=== PATIENT | male | born 1950 | race Two or more races ===

== ENCOUNTER 2016-12-27 07:44 | Day surgery (SDC) | payer MEDICARE ==
[~2016-12-27] VITALS: Ht 172.7 cm; Wt 86.4 kg
[~2016-12-27 07:44] MED LIST: ACETAMINOPHEN325 MG PO; ARGININE500 MG PO; ARTIFICIAL TEAR15 ML EACH EYE; ASCORBIC ACID500 MG PO; CARDIZEM120 MG PO; CLEOCIN HCL300 MG PO; COREG6.25 MG PO; COUMADIN4 MG PO; CYMBALTA30 MG; CYMBALTA30 MG PO; CYMBALTA60 MG PO; DIOVAN40 MG PO; FAMOTIDINE10 MG PO; FER-IN-SOL DROP50 ML; FERROUS SULFAT325 MG PO; FLOMAX0.4 MG PO; HUMALOG100 U/M1 SQ; HYDROCODON-ACE1 EAC7 PO; HYDROCODONE-APA1 TAB PO; LANTUS INSULIN10 ML SC; LEVEMIR100 U/M1 SQ; LEVOTHROID75 MCG PO; LYRICA150 MG PO; MELATONIN 3 MG1 TAB PO; MIRALAX17 GM PO; MULTIPLE VITAMI1 TA1 PO; NOVOLOG100 U/M1 SQ; PEPCID20 MG PO; PHENERGAN25 M1 PO; PROTONIX40 MG PO; REGLAN10 MG PO; SENNA LAXATIVE8.6 MG PO; SINEMET 25-1001 EACH PO; SYNTHROID175 MCG PO; TYLENOL W/CODEI1 TAB PO; VITAMIN D5000 UNIT; VITAMIN D5000 UNIT PO; ZOCOR20 MG PO; ZOCOR40 MG PO
[2016-12-27 08:15] LABS: BASOPHILS 1.1 % (0-2); EOSINOPHILS 9.5 % (0-7); HEMATOCRIT 39.2 % (42.0-54.0); HEMOGLOBIN 12.2 g/dL (13.5-17.5); IMMATURE GRANULOCYTES 0.1 % (0-5); LYMPHOCYTES 35.6 % (15-50); MCH 26.2 pg (26.0-34.0); MCHC 31.1 g/dL (31.0-37.0); MCV 84.1 fL (80.0-100.0); MEAN PLATELET VOLUME 9.1 fL (7.4-10.4); MONOCYTES 9.2 % (2-11); NEUTROPHILS 44.5 % (40-80); RBC 4.66 10x6/uL (4.20-6.10); RDW 17.6 % (11.5-14.5); WBC 7.1 10x3/uL (4.8-10.8)
[2016-12-27 08:18] LABS: PLATELET COUNT 280 10x3/uL (130-400)
[2016-12-27 08:36] LABS: ANION GAP 14.7 mmol/L (8-16); CALCIUM 8.7 mg/dL (8.5-10.1); CREATININE - SERUM 3.3 mg/dL (0.6-1.3); POTASSIUM - SERUM 3.7 mmol/L (3.5-5.1)
[2016-12-27 08:43] LABS: APTT 27.4 SECONDS (22.8-39.4); INR 0.91 (0.85-1.17); PROTIME 12.1 SECONDS (11.6-15.0)
[2016-12-27] MEDS ORDERED: ACIDOPHILUS LAC1 CAP PO (09:53)
[2016-12-27] MEDS ORDERED: HYDROCODON-ACE1 EAC7 PO (09:56)
[2016-12-27] MEDS ORDERED: METAMUCIL PACKE1 PKT PO (09:56)
[2016-12-27] MEDS ORDERED: CARBIDOPA-LEVO1 EAC2 PO (09:58)
[2016-12-27 10:06] VITALS: BP 114/63; Ht 172.7 cm; Wt 86.4 kg
--- NOTE | 2016-12-27 16:05 | NUR ---
PATIENT ARRIVES TO OUTPATIENT ROOM AND BLOOD PRESSURE 81/49, HR 81. PATIENT AWAKE, ALERT, TALKATIVE AND COHERENT. DENIES COMPLAINTS. GAEL OH RN NOTIFIES AARON MILLER CRNA WHO COMES TO SEE PATIENT REGARDING BLOOD PRESSURE. AARON MILLER'S RECOMMENDATION IS FOR DR NELSON TO BE NOTIFIED PATIENT MAY NEED TO BE ADMITTED. DR NELSON CALLED, DR NELSON REQUESTS RENAL SERVICE TO BE NOTIFIED. 1625 ALISON DEWITT APN WITH RENAL RETURNS PAGE AND GIVES ORDER TO GIVE 500 CC NORMAL SALINE BOLUS. 1628 BOLUS HELD AT THIS TIME, DUE TO LABILE BLOOD PRESSURE. BP 207/109, HR 80 AND REGULAR, RECHECKED IMMEDIATELY, 182/87. PATIENT DENIES COMPLAINTS, AWAKE, ALERT, DENIES PAIN. NO CHANGE IN LEFT ARM SURGICAL SITE ASSESSMENT. 1636 BP 114/60, HR 80 1650 BP 85/48, HR 79. BOLUS STARTED. PATIENT CONTINUES TO BE AWAKE, ALERT, DENIES COMPLAINTS. PLACED ON BAGGAGE INSPECTOR, NSR 83. 1645 BP 88/51, CAFFEINATED COFFEE SERVED. PATIENT DRINKING COFFEE, WATCHING TV. CARDIAC MONITORING CONTINUING, NSR 82. 1740 BOLUS COMPLETE, ALISON DEWITT APN CONTACTED PATIENT'S BP 79/42, HR 81, RR 16, O2 SAT 100% ON RA.
--- NOTE | 2016-12-27 18:00 | NUR ---
ALISON DEWITT APN RETURNS CALL, ORDER RECEIVED FOR PATIENT TO BE ADMITTED OVERNIGHT ON MED 2 FOR OBSERVATION. PATIENT ADVISED, TRUST ADVISOR ADVISED.
--- NOTE | 2016-12-27 19:05 | NUR ---
REPORT CALLED TO FABIAN SUMMERS RN ON MED 2, PATIENT TRANSFERRED TO ROOM 2103 BY COLLIN
--- NOTE | 2016-12-27 20:16 | NUR ---
PT IN BED WATCHING TELEVISION. DENIES NEEDS AT THIS TIME.
--- NOTE | 2016-12-28 04:16 | NUR ---
RESTING IN BED WITH EYES CLOSED. NO S/S OF DISTRESS OBSERVED. HEMOSPLIT TO RIGHT CHEST. DRESSING TO SITE CLEAN, DRY AND INTACT. HYPOTENSIVE EARLIER. 500CC OF NS GIVEN BOLUS AND B/P BETTER. CALL LIGHT AND OVER BED TABLE IN REACH.
--- NOTE | 2016-12-28 06:54 | OP ---
PATIENT NAME: ARI RODRIGUEZ MEDICAL RECORD: [id number] :50 LOCATION:D. D.2103 ADMISSION DATE: SURGEON: RENATE NELSON MD DATE OF OPERATION: 12/27/2016 REFERRING PHYSICIAN: Patrick Kerns MD PREOPERATIVE DIAGNOSIS: End-stage renal disease and dependence on hemodialysis. POSTOPERATIVE DIAGNOSIS: End-stage renal disease and dependence on hemodialysis. OPERATION PERFORMED: Implantation of a 6 mm straight Propaten PTFE loop graft in the left arm. SURGEON: Renate Nelson MD ANESTHESIA: General with LMA per NEONATAL DOCTOR. PREOPERATIVE NOTE: Mr. Rodriguez is a 66-year-old male patient, who is a [facility] confined and presently on dialysis with a tunneled dialysis catheter in the left internal jugular vein. He needs long-term access and is brought to the operating room today to try to either create a fistula or very likely implant an AV graft. The patient has rather small vessels on physical examination. He is allergic to contrast. DESCRIPTION OF PROCEDURE: Under anesthesia in supine position, the patient was prepped and draped in sterile manner. I used a Tess drain as a proximal venous tourniquet and applied nitroglycerin to the skin of the arm and forearm. I examined him then with duplex ultrasound and found the superficial veins in his forearm and arm to be quite small. There was a good median antebrachial vein in the forearm, which transitioned to the median cubital vein, which was of adequate caliber for a fistula, but the cephalic vein just above the antecubital space was absent. The basilic vein was small, and as he is already on dialysis, I did not think we needed to create a less than serviceable fistula. I went ahead with plans for graft. The axillary and basilic vein in the axilla were adequate as was the axillary artery and proximal brachial artery. I made a longitudinal incision on the medial aspect of the arm just lateral to the axilla and exposed the most proximal basilic vein and the proximal brachial artery as well. The vessels were controlled with Silastic loops and atraumatic clamps. I chose a 6-mm straight [place] Propaten graft, bevelled one in and anastomosed it to the side of the vein with running 6-0 Prolene. The vein was flushed with heparinized saline. Evicel fibrin sealant was used on the suture line and fibrillar was also used to achieve hemostasis. The graft was placed in a tunnel, which required one counterincision just above the antecubital space. The arterial limb was the anterior and the venous limb was the posterior part of this loop. The graft was shortened and beveled and anastomosed end-to-side to the brachial artery with continuous running 6-0 Prolene only with regional dilute heparin injection in the brachial artery proximally and distally. When that suture line was complete, it was also treated with Evicel fibrin sealant, and then after 2 minutes the clamps were released, an excellent flow was established in the graft and hemostasis was adequate. There was adequate flow OPERATIVE REPORT [id number] ARI RODRIGUEZ distally in the brachial and radial artery at the wrist as well. The wounds were irrigated gently with saline. Hemostasis was obtained with electrocautery. The wounds were infiltrated with 0.25% Marcaine without epinephrine. No drain was used. The wounds were closed in layers with interrupted 3-0 Vicryl and running intracuticular 4-0 Monocryl and Dermabond glue. The incisions were dressed with Maxorb Ag, Tegaderm and Cavilon skin prep. The patient then awakened and taken to the recovery room in stable condition. Blood loss during the procedure was insignificant, probably 10 cc, none was replaced intraoperatively. All sponges, instruments and needles were accounted for. No surgical specimen was submitted for histopathology. PLAN: The patient's graft should be usable for access in about 2, perhaps 3 weeks. I think that he should have an angiogram done at 6 weeks as I am interested to see what the venous anastomosis does as it was technically difficult. PLAN: The patient will be discharged to return to his [facility] this afternoon. Continue on his same medications, diet, etc. He will come back to see me in my office next week. TRANSINT:[id number] Voice Confirmation ID: [id number] DOCUMENT ID: [id number] RENATE NELSON MD at 0654 CC: [id number] DICTATION DATE: 12/27/161552 FOLDER TIER: 12/27/162135 REG [facility] [address] [place] [address]
[2016-12-28] MEDS ORDERED: HYDROCODONE-APA1 TAB PO (08:06)
--- NOTE | 2016-12-28 08:21 | NUR ---
FLUSHED RT CHEST HEMISLPIT WITH 10CC OF NS, AND THEN HEP LOCKED IT WITH 3000UNITS OF HEPARIN ORDERED. PT DENIES ANY NEEDS AT THIS TIME. CALL LIGHT IN REACH, NAD NOTED, WILL CONTINUE PLAN OF CARE
--- NOTE | 2016-12-28 09:28 | NUR ---
CM RECEIVED DISCHARGE ORDER, MET WITH PT IN ROOM AND DISCUSSED DISCHARGE AND NEEDS. PT REPORTS HE LIVES AT [place] AND HAS LIVED THERE FOR THE PAST 10 YEARS. PT REPORTS NEEDING ASSISTANCE WITH ALL DAILY LIVING NEEDS OTHER THAN EATING. PT IS MOBILE IN HIS WHEELCHAIR ONLY. PT'S WHEELCHAIR IS IN THE HOSPITAL ROOM FOR DISCHARGE TODAY. PT DENIES NEED TO CALL FAMILY TO NOTIFY THEM OF HIS DISCHARGE HOME. PT REPORTS HE IS NOT GOING TO DIALYSIS AND THAT CM NEEDS TO CALL THE [place] [facility] TO PICK HIM UP NOW. CM NOTIFIED BEDSIDE NURSE OF PT'S REFUSAL OF DIALYSIS. CM CALLED [facility], , SPOKE TO PJ, NOTIFIED OF DISCHARGE BACK HOME TO [place]. CM FAXED DISCHARGE INFORMATION TO [place] AT [phone]. NURSE REPORT TO BE CALLED TO NURSE DARIN MEDINA AT [place], . [place] TO ARRANGE [facility] SERVICE CLEANER TODAY. DVAIDE TAPIA, CASE MANAGEMENT
--- NOTE | 2016-12-28 09:30 | NUR ---
CALLED [facility] TO GIVE REPORT. WAS PLACED ON HOLD FOR 15MIN. WILL CALL BACK LATER.
--- NOTE | 2016-12-28 10:00 | NUR ---
PROVIDED DISCHARGE TEACHING TO PT, PT VERBALIZED UNDERSTANDING REGARDING TEACHING. PT UNABLE TO SIGN DUE TO HAND SHAKING TOO MUCH. PT DENIES ANY NEEDS AT THIS TIME. WILL CALL [facility] TO GIVE REPORT TO SEE WHAT TIME [facility] WILL BE HERE TO PICK PT UP. NAD NOTED, WILL CONTINUE PLAN OF CARE.
--- NOTE | 2016-12-28 10:15 | NUR ---
CALLED [facility] AND GAVE REPORT TO DARIN GUILLEN WHO WILL BE TAKING CARE OF PT. 1020- CALLED RT MAYELA THE AUTOMATIC FURNACE OPERATOR TO LET HIM KNOW PT IS READY FOR METER REPAIRER. RT STATED THAT HE WILL BE HERE IN 30MIN.
--- NOTE | 2016-12-28 12:35 | NUR ---
RT [facility] WOOD HANDLER HERE TO FOOD BEVERAGE ATTENDANT PT. PT LEFT UNIT VIA OWN WHEELCHIAR, NAD NOTED.
== END 2016-12-28 12:36 ==
LOC: D.OPS 07:44 → D.M2 19:08 → D.OPS 12-28 12:36
PROVIDERS: Internal Medicine Nephrology
DX: N18.6 End stage renal disease (principal); Z99.2 Dependence on renal dialysis; Z01.812 Encounter for preprocedural laboratory examination

== ENCOUNTER 2016-12-30 22:36 | Inpatient (IN) | payer MEDICARE ==
[~2016-12-30] VITALS: Ht 172.7 cm; Wt 86.2 kg
[~2016-12-30 22:36] MED LIST changes: +ACIDOPHILUS LAC1 CAP PO; +CARBIDOPA-LEVO1 EAC2 PO; +METAMUCIL PACKE1 PKT PO
[2016-12-31 00:11] LABS: BASOPHILS 0.4 % (0-2); EOSINOPHILS 4.6 % (0-7); HEMATOCRIT 34.9 % (42.0-54.0); HEMOGLOBIN 11.1 g/dL (13.5-17.5); IMMATURE GRANULOCYTES 0.4 % (0-5); LYMPHOCYTES 24.5 % (15-50); MCH 26.2 pg (26.0-34.0); MCHC 31.8 g/dL (31.0-37.0); MCV 82.3 fL (80.0-100.0); MEAN PLATELET VOLUME 9.7 fL (7.4-10.4); MONOCYTES 9.2 % (2-11); NEUTROPHILS 60.9 % (40-80); RBC 4.24 10x6/uL (4.20-6.10); RDW 17.2 % (11.5-14.5); WBC 7.7 10x3/uL (4.8-10.8)
[2016-12-31 00:20] LABS: PLATELET COUNT 178 10x3/uL (130-400)
[2016-12-31 00:41] LABS: ALBUMIN 2.2 g/dL (3.4-5.0); ANION GAP 13.1 mmol/L (8-16); BILIRUBIN - TOTAL 0.51 mg/dL (0.2-1.3); CALCIUM 8.1 mg/dL (8.5-10.1); CARBON DIOXIDE 27.2 mmol/L (21.0-32.0); CREATININE - SERUM 2.5 mg/dL (0.6-1.3); MAGNESIUM - SERUM 1.7 mg/dL (1.8-2.4); POTASSIUM - SERUM 3.3 mmol/L (3.5-5.1); PROTEIN - SERUM 7.4 g/dL (6.4-8.2)
--- NOTE | 2016-12-31 01:45 | NUR ---
PT ARRIVED TO FLOOR VIA BED. BREATHING EVEN AND UNLABORED. ORIENTED TO NURSE AND UNIT. BED IN LOW POSITION, CALL LIGHT WITHIN REACH. DENIES NEEDS AT THIS TIME. HOOKED UP TO IV TO RECIEVE ORDERED ZOSYN IVPB.
[2016-12-31 02:02] VITALS: BP 104/58; BMI 28.9
[2016-12-31 04:16] VITALS: BP 93/45
--- NOTE | 2016-12-31 05:30 | NUR ---
PT IN BED RESTING QUIETLY. FSBS 131, NO COVERAGE PER SLIDING SCALE. BREATHING EVEN AND UNLABORED. DENIES ANY PAIN OR NEEDS AT THIS TIME. BED IN LOW POSITION, CALL LIGHT WITHIN REACH.
--- NOTE | 2016-12-31 07:41 | NUR ---
PATIENT ALERT/ORIENT. CALL LIGHT WITHIN REACH. VOICES NO NEEDS AT THIS TIME.
[2016-12-31 08:00] VITALS: BP 99/49
--- NOTE | 2016-12-31 10:37 | NUR ---
PATIENT LYING IN BED WATCHIN T.V. ANTIBIOTIC RUNNING PERIPHERAL LINE RIGHT UPPER ARM.
[2016-12-31 12:00] VITALS: BP 105/50
--- NOTE | 2016-12-31 13:00 | NUR ---
DARIN RAMOS SEE PATIENT. NEW ORDERS RECEIVED.
[2016-12-31 13:02] VITALS: Ht 172.7 cm; Wt 86.2 kg
--- NOTE | 2016-12-31 13:44 | NUR ---
SCD'S ON MARLI LE
--- NOTE | 2016-12-31 14:00 | NUR ---
DR GARDINER INTO SEE PATIENT. NEW ORDERS RECIEVED.
[2016-12-31 16:00] VITALS: BP 108/53
--- NOTE | 2016-12-31 16:13 | NUR ---
GLUCOSE LEVEL 74. NO SLIDING SCALE INSULIN GIVEN PER ORDER
--- NOTE | 2016-12-31 17:00 | NUR ---
GLUCOSE LEVEL 74. PATIENT SITTING UP IN BED TO EAT SUPPER.
[2016-12-31 21:22] VITALS: BP 107/51
--- NOTE | 2016-12-31 22:04 | NUR ---
INITIAL ROUNDS COMPLETED AT 191 HRS. PT RESTING WITH EYES CLOSED. RESP EVEN AND REULAR. ASSESSMENT COMPELTED AT 2024 HRS. VSS. ALRT AND ORIENTED. L UPPER FA RED AND SWOLLEN. R UPPER CHEST HEMOSPLIT CLEAN, DRY AND INTACT. LUNGS ESSENTIALLY CTA. SCD'S REMOVED AND SKIN INSPECTED. NO BREAKDOWN NOTED. IV TO UPPER R ARM SL. PM FSBS 88. NO COVERAGE NEEEDED. PM MEDS AND SNACK GIVEN. PT CURRENTLY RESTING WITH EYES CLOSED. RESP EVEN AND REGULAR. SR UP X2, CALL LIGHT WITHIN REACH.
--- NOTE | 2017-01-01 00:18 | NUR ---
PT INCONTINENT OF URINE. INCONTINENT CARE DONE. VSS. PT DENIES ANY NEEDS AT THIS TIME. WILL CONTINUE TO MONITOR.
[2017-01-01 01:32] VITALS: BP 99/48
--- NOTE | 2017-01-01 02:10 | NUR ---
PT RESTING WITH EYES CLOSED. RESP EVEN AND REGULAR. SR UP X2,CALL LIGHT WITHIN REACH.
--- NOTE | 2017-01-01 04:06 | NUR ---
PT RESTING WITH EYES CLOSED. RESP EVEN AND REGULAR. SR UPX2, CALL LIGHT WITHIN REACH.
[2017-01-01 04:27] VITALS: BP 104/50
--- NOTE | 2017-01-01 06:01 | NUR ---
VSS THROUGHOUT NIGHT. PT STATED NORCO HELPED CONTROL PAIN. INCONTINENT OF URINE X2 DURING SHIFT. AM FSBS 108. NO COVERGE NEEDED. NEEDS MET; WILL CONTINUE TO MONITOR.
[2017-01-01 06:32] LABS: PHOSPHOROUS 3.9 mg/dL (2.5-4.9); VANCOMYCIN - RANDOM 0.1 ug/mL (10.0-20.0)
--- NOTE | 2017-01-01 07:35 | NUR ---
ASSESSMENT DONE. DENIES NEEDS,
[2017-01-01 09:06] VITALS: BP 90/51
--- NOTE | 2017-01-01 09:48 | NUR ---
RESTS WITH EYES CLOSED. IV PATENT. CALL LIGHT IN REACH. WILL MONITOR NEEDS.
[2017-01-01 11:32] LABS: BASOPHILS 0.4 % (0-2); EOSINOPHILS 8.6 % (0-7); HEMATOCRIT 33.5 % (42.0-54.0); HEMOGLOBIN 10.4 g/dL (13.5-17.5); IMMATURE GRANULOCYTES 0.4 % (0-5); LYMPHOCYTES 29.8 % (15-50); MCH 25.9 pg (26.0-34.0); MCV 83.5 fL (80.0-100.0); MEAN PLATELET VOLUME 9.3 fL (7.4-10.4); MONOCYTES 9.9 % (2-11); NEUTROPHILS 50.9 % (40-80); RBC 4.01 10x6/uL (4.20-6.10); RDW 17.4 % (11.5-14.5); WBC 6.9 10x3/uL (4.8-10.8)
[2017-01-01 11:33] LABS: PLATELET COUNT 216 10x3/uL (130-400)
[2017-01-01 11:49] LABS: ALBUMIN 2.2 g/dL (3.4-5.0); ANION GAP 15.2 mmol/L (8-16); BILIRUBIN - TOTAL 0.58 mg/dL (0.2-1.3); CALCIUM 8.3 mg/dL (8.5-10.1); CARBON DIOXIDE 25.3 mmol/L (21.0-32.0); POTASSIUM - SERUM 3.5 mmol/L (3.5-5.1); PROTEIN - SERUM 6.6 g/dL (6.4-8.2)
[2017-01-01 11:51] LABS: CREATININE - SERUM 3.3 mg/dL (0.6-1.3)
[2017-01-01 12:00] VITALS: BP 116/55
[2017-01-01 16:00] VITALS: BP 111/55
--- NOTE | 2017-01-01 16:59 | NUR ---
WITHOUT CHANGES OR DISTRESS NOTED AT THIS TIME. DENIES NEEDS.
[2017-01-01 19:00] VITALS: BP 110/56
--- NOTE | 2017-01-01 19:41 | NUR ---
RECEIVED REPORT, WILL ASSUME CARE OF PT, PT LYING QUIETLY WITH EYES CLOSED, BED IS LOW, SRX2, CALL LIGHT IN REACH,WILL CONTINUE PLAN OF CARE
[2017-01-02 00:29] VITALS: BP 131/61
--- NOTE | 2017-01-02 02:25 | NUR ---
COMPLAINS OF ARM PAIN, GAVE NORCO ORDER
[2017-01-02 05:03] VITALS: BP 106/53
[2017-01-02 05:06] LABS: BASOPHILS 0.6 % (0-2); EOSINOPHILS 10.8 % (0-7); HEMATOCRIT 32.3 % (42.0-54.0); HEMOGLOBIN 9.9 g/dL (13.5-17.5); IMMATURE GRANULOCYTES 0.3 % (0-5); LYMPHOCYTES 37.3 % (15-50); MCH 25.6 pg (26.0-34.0); MCHC 30.7 g/dL (31.0-37.0); MCV 83.5 fL (80.0-100.0); MONOCYTES 10.4 % (2-11); NEUTROPHILS 40.6 % (40-80); PLATELET COUNT 220 10x3/uL (130-400); RBC 3.87 10x6/uL (4.20-6.10); RDW 17.3 % (11.5-14.5); WBC 6.5 10x3/uL (4.8-10.8)
[2017-01-02 05:36] LABS: ANION GAP 16.4 mmol/L (8-16); BILIRUBIN - TOTAL 0.6 mg/dL (0.2-1.3); CALCIUM 8.5 mg/dL (8.5-10.1); CARBON DIOXIDE 24.9 mmol/L (21.0-32.0); CREATININE - SERUM 3.7 mg/dL (0.6-1.3); POTASSIUM - SERUM 3.3 mmol/L (3.5-5.1); PROTEIN - SERUM 6.7 g/dL (6.4-8.2)
--- NOTE | 2017-01-02 07:49 | NUR ---
MORNING ROUNDS MADE. PATIENT LAYING IN BED, WATCHING TV. C/O PAIN LEFT ARM, ADVISED HE IS DUE FOR [facility] AT 0815 AND I'LL BRING IT WITH HIS MORNING MEDS, PT VOICED UNDERSTANDING. LEFT UPPER ARM IS RED, SWOLLEN, AND WARM TO THE TOUCH. HE HAS 2 BANDAGES WHICH ARE DRY AND CLEAN. HE HAS A RIGHT CHEST HEMOSTAT, DRESSING CLEAN AND DRY. DENIES ANY NEEDS AT THIS TIME. CPOC.
[2017-01-02 08:14] VITALS: BP 106/52
--- NOTE | 2017-01-02 09:50 | NUR ---
PATIENT TRANSPORTED TO DIALYSIS BY [facility].
--- NOTE | 2017-01-02 13:08 | NUR ---
Nutrition follow-up: Diet: Renal ADA consistent CHO PO Intake ~75% of meals Labs reviewed Wt: 190# PO intake is good at this time. RDN will continue to monitor patients progress. Following.
--- NOTE | 2017-01-02 13:33 | NUR ---
PATIENT BACK FROM DIAYLSIS, PATIENT POSITIONED FOR COMFORT. DENIES ANY NEEDS. CPOC
[2017-01-02 16:18] VITALS: BP 111/56
--- NOTE | 2017-01-02 16:53 | NUR ---
PATIENT C/O PAIN, NORCO GIVEN. WILL CONTINUE TO MONITOR. LEFT UPPER ARM IS RED, SWOLLEN, AND WARM TO THE TOUCH. NO CHANGES SINCE ASSESSED THIS AM. CPOC.
--- NOTE | 2017-01-02 18:50 | NUR ---
EVENING ROUNDS MADE. PATIENT LAYING IN BED WATCHING TV. REQUESTS APPLE JUICE AT THIS TIME. APPLE JUICE GIVEN. NO OTHER REQUESTS AT THIS TIME. INSTRUCTED TO USE CALL LIGHT IF HE NEEDS ANYTHING. VOICED UNDERSTANDING. CPOC
[2017-01-02 19:00] VITALS: BP 106/51
--- NOTE | 2017-01-02 22:25 | NUR ---
HS MEDS GIVEN WITH FRESH ICE WATER, BS 88, NO COVERAGE GIVEN PER S/S. WILL CONT TO MONITOR.
[2017-01-03 01:21] VITALS: BP 110/56
--- NOTE | 2017-01-03 03:35 | NUR ---
RESTING WITH EYES CLOSED, RESPERATIONS EVEN, NO S/S DISTRESS NOTED.
[2017-01-03 04:00] VITALS: BP 122/57
--- NOTE | 2017-01-03 04:41 | NUR ---
PT REFUSES TO HAVE AM LAB DRAWN.
--- NOTE | 2017-01-03 05:28 | NUR ---
PT REFUSED EARLY AM MEDS AND BS CHECK.
--- NOTE | 2017-01-03 07:53 | NUR ---
AM ROUNDS - PT IS IN BED AND APPEARS TO BE SLEEPING WITH EQUAL AND NON LOBORED BREATHING. IV TO RIGHT UPPER ARM, NS AT KVO (10CC/HR). BED AT LOWEST POSITION. CALL TEMPLE IN USE/REACH. SIDE RAILS UP X2. WILL CONTINUE TO MONITOR
--- NOTE | 2017-01-03 08:23 | NUR ---
PT INCONT OF BOWEL. VERY SOFT BROWN BM. ALSO INCON OF URINE. BED CAHNGED AND PARTIAL BATH GIVEN. READY FOR BREAKFAST.
[2017-01-03 08:42] VITALS: BP 119/68
[2017-01-03 08:58] LABS: BASOPHILS 0.7 % (0-2); EOSINOPHILS 7.8 % (0-7); HEMATOCRIT 36.5 % (42.0-54.0); HEMOGLOBIN 11.5 g/dL (13.5-17.5); IMMATURE GRANULOCYTES 0.4 % (0-5); LYMPHOCYTES 35.4 % (15-50); MCHC 31.5 g/dL (31.0-37.0); MCV 82.6 fL (80.0-100.0); MEAN PLATELET VOLUME 8.8 fL (7.4-10.4); MONOCYTES 8.3 % (2-11); NEUTROPHILS 47.4 % (40-80); PLATELET COUNT 211 10x3/uL (130-400); RBC 4.42 10x6/uL (4.20-6.10); RDW 16.9 % (11.5-14.5)
[2017-01-03 09:47] LABS: ALBUMIN 2.2 g/dL (3.4-5.0); BILIRUBIN - TOTAL 0.56 mg/dL (0.2-1.3); CALCIUM 8.3 mg/dL (8.5-10.1); CARBON DIOXIDE 26.2 mmol/L (21.0-32.0); CREATININE - SERUM 3.4 mg/dL (0.6-1.3); PHOSPHOROUS 3.8 mg/dL (2.5-4.9); PROTEIN - SERUM 6.9 g/dL (6.4-8.2)
[2017-01-03 09:48] LABS: ANION GAP 15.6 mmol/L (8-16); POTASSIUM - SERUM 3.8 mmol/L (3.5-5.1)
[2017-01-03 12:09] VITALS: BP 111/52
[2017-01-03 16:29] VITALS: BP 122/55
[2017-01-03 20:00] VITALS: BP 112/55
--- NOTE | 2017-01-03 21:16 | NUR ---
HS MEDS GIVEN, BS 75, NO COVERAGE GIVEN PER S/S. PT DENIES PAIN OR NEEDS, BED LOW, CL IN REACH.
[2017-01-04 01:11] VITALS: BP 98/49
[2017-01-04 04:29] VITALS: BP 100/50
--- NOTE | 2017-01-04 04:29 | NUR ---
NOTIFIED BY GHISLAINE THE FORMING MILL OPERATOR, THE PT REFUSED MORNING LAB DRAW, STATED THAT HE HAS DILAYSIS TODAY AND WANTS TO WAIT UNTIL THEN TO GET LABS DRAWN.
--- NOTE | 2017-01-04 06:12 | NUR ---
FIRE CREW WORKER MEDS GIVEN, PT REFUSED FINGER STICK, WANTS TO WAIT UNTIL DIALYSIS.
[2017-01-04 08:23] VITALS: BP 107/47
--- NOTE | 2017-01-04 08:35 | NUR ---
AM ROUNDS COMPLETED. INTRODUCED MYSELF TO PT PRIMARY RN FOR TODAYS SHIFT. PT A&O SITTING UP IN BED EATING BREAKFAST. PT STATES HE HOPES TO BE DISCHARGED TODAY. L.ARM STILL SLIGHTLY SWOLLEN AND REDDENED, DRSG CDI. PT HAS A R.CHEST HEMESPLIT WITH BIOPATCH IN USE AND DRSG ADHERED TO SKIN. PT ALSO HAS A R.UPPER ARM PIV WITH DRSG CDI AND SWAB CAPS IN USE, WITH INTERMITT. ANBX INFUSING. PT SWALLOWED MORNING MEDICATIONS WITHOUT ANY DIFFICULTIES. WE NEED A STOOL SAMPLE FOR PT AND HE IS AWARE AND STATES HE WILL PROVIDED WHEN AVAILABLE. PT DENIES ANY FURTHER NEEDS AT THIS TIME. CL IN REACH, BED IN LOWEST, SIDE RAILS X2. WILL CPOC.
--- NOTE | 2017-01-04 09:10 | NUR ---
PT LEAVING FOR DIALYSIS AT THIS TIME.
--- NOTE | 2017-01-04 09:28 | NUR ---
Patient Name: ARI SOTO Admission Status: ER Accout number: [id number] Admission Date: 12-31-2016 : 1950 Admission Diagnosis:PAIN IN LEFT ARM Attending: BARB GARDINER Current LOS: 4 Anticipated DC Date: 01-04-2017 Planned Disposition: Nursing Facility [facility] Cert Primary Insurance: MEDICARE A & B PLANNED EXTERNAL PROVIDER: [facility] Discharge Planning Comments: * Is the patient Alert and Oriented? Yes 0 * How many steps to enter\exit or inside your home? NONE 0 * PCP DR. APNOTE 0 * Pharmacy [facility] 0 * Preadmission Environment [facility] 0 * Facility Name [facility] 0 * ADLs Partial Dependent 0 * Partial ADLs (Assistance needed) Ambulation Bathing Dressing Medication Management Toileting Transfers 0 * Equipment Wheelchair 0 * Other Equipment ALL MEDICAL EQUIPMENT PROVIDED BY FACILITY 0 * List name and contact numbers for known caregivers / representatives who currently or will assist patient after discharge: ELIZABETH SOTO DTR, 0 * Community resources currently utilized Other 0 * Please name any agencies selected above. OUTPATIENT DIALYSIS, [facility], MWF, 1100, [facility] VAN TRANSPORT 0 * Additional services required to return to the preadmission environment? No 0 * Can the patient safely return to the preadmission environment? Yes 0 * Has this patient been hospitalized within the prior 30 days at any hospital? Yes 0 CM SPOKE TO RENAL NURSE DARIN WHO INFORMED CM THAT PT MAY DISCHARGE AFTER DIALYSIS TODAY. CM MET WITH PT IN ROOM TO DISCUSS DISCHARGE PLANNING AND NEEDS. PT REPORTS LIVING AT [facility], HE REPORTS NEEDING ASSISTANCE WITH EVERYTHING EXCEPT EATING. PT REPORTS BEING MOBILE IN HIS WHEELCHAIR AT THE FACILITY. PT GOES TO OUTPATIENT DIALYSIS AT [facility], [facility], [facility]SP[facility]. PT DENIES DISCHARGE NEEDS, REPORTS HE IS GOING HOME TO [facility] AND HAS BEEN READY TO GO BACK SINCE THE DAY HE GOT HERE. PT REPORTS THE [facility] WILL PICK HIM UP. CM OFFERED TO CALL FAMILY OR FRIENDS TO NOTIFY OF DISCHARGE HOME, PT REPORTS HE DOES NOT NEED ASSISTANCE TO CALL ANYONE. IMPORTANT MESSAGE FROM MEDICARE PROVIDED AND EXPLAINED. CM NOTIFIED [facility], , CLINICAL LIAISON FOR [facility] OF PT'S RETURN TODAY, FAXED UPDATE FOR [facility] VIA [facility] AT [phone]. FOR DISCHARGE, NURSE REPORT TO BE CALLED TO [facility] AT [phone]. FAX DISCHARGE INFORMATION TO [facility] AT [phone]. [facility] TO PROVIDE [facility]AN TRANSPORTATION. Supervisor Frame Sample And Pattern: Juno Huizar
[2017-01-04 10:50] LABS: BASOPHILS 0.5 % (0-2); HEMATOCRIT 33.2 % (42.0-54.0); HEMOGLOBIN 10.5 g/dL (13.5-17.5); IMMATURE GRANULOCYTES 0.4 % (0-5); MCH 26.3 pg (26.0-34.0); MCHC 31.6 g/dL (31.0-37.0); MONOCYTES 6.6 % (2-11); NEUTROPHILS 50.5 % (40-80); RDW 17.1 % (11.5-14.5); WBC 5.6 10x3/uL (4.8-10.8)
[2017-01-04 10:52] LABS: PLATELET COUNT 255 10x3/uL (130-400)
[2017-01-04 11:15] LABS: ALBUMIN 1.9 g/dL (3.4-5.0); BILIRUBIN - TOTAL 0.45 mg/dL (0.2-1.3); CALCIUM 8.2 mg/dL (8.5-10.1); CARBON DIOXIDE 24.8 mmol/L (21.0-32.0); CREATININE - SERUM 3.7 mg/dL (0.6-1.3); PROTEIN - SERUM 6.6 g/dL (6.4-8.2)
[2017-01-04 11:17] LABS: ANION GAP 15.2 mmol/L (8-16)
--- NOTE | 2017-01-04 13:24 | NUR ---
PT BACK FROM DIALYSIS RESTING QUIETLY IN BED AND REC'D VANCOMYCIN ORDERED ON DIALYSIS. PTS VSS AND PT DENIES ANY CURRENT PAIN OR NEEDS. CL IN REACH. WILL CPOC.
--- NOTE | 2017-01-04 15:12 | NUR ---
DISCHARGE TEACHING PROVIDED AND NURSE REPORT CALLED TO [facility]. [facility] WILL BINDING MACHINE OPERATOR PT FOR TRANSPORTATION IN A LITTLE BIT. PT READY AND VOICED THANKS AND IS EXCITED TO GO BACK. D/C'D PTS R.UPPER ARM PIV WITH CATHETER TIP FULLY INTACT. PT NOW RESTING QUIETLY JUST AWAITING TRANSPORTATION. CL IN REACH. NO CURRENT NEEDS. WILL CPOC.
--- NOTE | 2017-01-04 16:14 | NUR ---
TRANPORTATION HERE AND TAKING PT NOW. NO FURTHER NEEDS.
== END 2017-01-04 16:14 | DRG 862 ==
LOC: D.ER 22:36 → D.M2 12-31 00:50
PROVIDERS: Physician Assistant Medical; ADMIT Internal Medicine Nephrology
PROC: 5A1D70Z Performance of Urinary Filtration, Intermittent, Less than 6 Hours Per Day (ICD-10-PCS; principal; 2017-01-02)
DX: T81.4XXA Infection following a procedure, initial encounter (principal); N18.6 End stage renal disease; L03.114 Cellulitis of left upper limb; I12.0 Hypertensive chronic kidney disease with stage 5 chronic kidney disease or end stage renal disease; Y83.8 Other surgical procedures as the cause of abnormal reaction of the patient, or of later complication, without mention of misadventure at the time of the procedure; E11.22 Type 2 diabetes mellitus with diabetic chronic kidney disease; Z99.2 Dependence on renal dialysis; Z87.891 Personal history of nicotine dependence

== ENCOUNTER 2017-03-27 18:03 | Observation (INO) | payer MEDICARE ==
[~2017-03-27] VITALS: Ht 172.7 cm; Wt 86.2 kg
--- NOTE | ~2017-03-27 | CN ---
PATIENT NAME:ARI RODRIGUEZ MEDICAL RECORD: [id number] : 50 LOCATION:. D.2114 ADMIT DATE: 03/29/17 ACCOUNT: [id number] CONSULTING PHYSICIAN: DEEPAK ARCHER MD REFERRING PHYSICIAN: BARB GARDINER MD DATE OF CONSULTATION: 03/28/2017 REFERRING PHYSICIAN: Dr. Alford. CHIEF COMPLAINT: ESRD with bleeding AV fistula. HISTORY OF PRESENT ILLNESS: Mr. Rodriguez is a 66-year-old gentleman with history of diabetic nephropathy, ESRD on hemodialysis Monday, Monday, Monday, who is admitted for fistula complications. The patient started bleeding on Monday on dialysis and again after dialysis his fistula started bleeding yesterday. He also noticed a swelling of his left arm and he was directed to come to the ER. He denies any other symptoms. No fever, chills, numbness in the hand, or weakness. No lightheadedness, chest pain, shortness of breath, or headaches. No other complaints. He has ESRD for the past year, dialyzed through [facility]. PAST MEDICAL HISTORY: Diabetes, neuropathy, hypothyroidism. PAST SURGICAL HISTORY: Cholecystectomy, left metatarsal amputation. ALLERGIES: IODINATED CONTRAST MEDIA and BLEACH. MEDICATIONS: Review admission medication list. REVIEW OF SYSTEMS: Ten systems were reviewed and were all negative except HPI. SOCIAL HISTORY: The patient denies smoking or alcohol use. FAMILY HISTORY: Significant for diabetes and no ESRD. PHYSICAL EXAMINATION: GENERAL APPEARANCE: Patient was alert, oriented, well-developed male. VITAL SIGNS: Temperature 97.9, pulse rate 76, respiratory rate 16, blood pressure 130/66, and pulse ox 99% on room air. HEENT: No conjunctival pallor, no scleral icterus. Oral mucous membrane moist. NECK: No JVD. CARDIOVASCULAR: Regular rate and rhythm. No murmurs, rubs, or gallops. No displaced apex. RESPIRATORY: Good respiratory effort. No wheezes, rales, or crackles. Clear to auscultation bilaterally. ABDOMEN: Soft, nontender, nondistended. Positive bowel sounds. MUSCULOSKELETAL: Left arm swollen and tender at the AV fistula site. No positive thrill. Good radial pulse. No cold hand and no pallor or cyanosis. NEUROLOGIC: Alert, oriented times 3. No gross focal deficits. MUSCULOSKELETAL: Amputated metatarsal on the left. PSYCHIATRIC: Pleasant and cooperative. LABORATORY DATA: WBC 6.9, hemoglobin 13 with a hematocrit 40.6, platelets 158. Sodium 133, potassium 4.6, chloride 94, carbon dioxide 24, BUN 80 with a creatinine of 5.5, glucose 229, albumin 3.3 with rest of liver function tests CONSULT REPORT [id number] ARI RODRIGUEZ within normal limits. INR is 1 with PTT 66. IMAGING: Left arterial Doppler ultrasound showed the patent left upper extremity arteries. ASSESSMENT AND PLAN: 1. Bleeding fistula. Vascular surgery admitted the patient and waiting for evaluation. No active bleeding and hemoglobin is stable. 2. ESRD. The patient dialyzes Monday, Monday and Monday. He was dialyzed yesterday. Await surgical evaluation for his fistula before arranging dialysis. No acute indication for dialysis today. We will arrange dialysis tomorrow after evaluation of his AV fistula. Thank you for allowing us to participate in the care of this pleasant patient. Please feel free to call us with any questions. Phone number is [phone]. TRANSINT:[id number] Voice Confirmation ID: [id number] DOCUMENT ID: [id number] DEEPAK ARCHER MD at 0949 CC: [id number] DICTATION DATE: 03/28/17 1444 HIDE OR SKIN BUFFER: 03/28/17 1507 ADM IN [place] [id number] [place] [id number]
[2017-03-27 20:28] LABS: HEMATOCRIT 43.3 % (42.0-54.0); HEMOGLOBIN 13.7 g/dL (13.5-17.5); LYMPHOCYTES 30.5 % (15-50); MCH 26.4 pg (26.0-34.0); MCHC 31.6 g/dL (31.0-37.0); MCV 83.6 fL (80.0-100.0); MEAN PLATELET VOLUME 8.5 fL (7.4-10.4); NEUTROPHILS 63.8 % (40-80); RBC 5.18 10x6/uL (4.20-6.10); RDW 15.4 % (11.5-14.5); WBC 6.7 10x3/uL (4.8-10.8)
[2017-03-27 20:30] LABS: PLATELET COUNT 135 10x3/uL (130-400)
[2017-03-27 20:34] LABS: INR 1.02 (0.85-1.17)
[2017-03-27 20:35] LABS: APTT 66.1 SECONDS (22.8-39.4)
[2017-03-27 20:44] LABS: ALBUMIN 3.4 g/dL (3.4-5.0); ANION GAP 17.1 mmol/L (8-16); BILIRUBIN - TOTAL 0.58 mg/dL (0.2-1.3); CALCIUM 8.7 mg/dL (8.5-10.1); CARBON DIOXIDE 26.6 mmol/L (21.0-32.0); CREATININE - SERUM 4.5 mg/dL (0.6-1.3); POTASSIUM - SERUM 4.7 mmol/L (3.5-5.1)
[2017-03-28] VITALS (7 sets, daily range): BP systolic 106–139; BP diastolic 57–66; Ht 172.7 cm; Wt 86.2 kg
[2017-03-28] MEDS ORDERED: DURAGESIC1 PATCH .7 TRANSDERM (09:50)
[2017-03-28] MEDS ORDERED: ZOFRAN ODT4 MG/UDTAB PO (09:53)
[2017-03-28 11:18] LABS: HEMATOCRIT 40.6 % (42.0-54.0); LYMPHOCYTES 30.4 % (15-50); MCH 26.9 pg (26.0-34.0); MCV 83.9 fL (80.0-100.0); MEAN PLATELET VOLUME 9.3 fL (7.4-10.4); NEUTROPHILS 59.3 % (40-80); PLATELET COUNT 158 10x3/uL (130-400); RBC 4.84 10x6/uL (4.20-6.10); RDW 15.5 % (11.5-14.5); WBC 6.9 10x3/uL (4.8-10.8)
[2017-03-28 11:43] LABS: ALBUMIN 3.3 g/dL (3.4-5.0); ANION GAP 18.8 mmol/L (8-16); BILIRUBIN - TOTAL 0.44 mg/dL (0.2-1.3); CARBON DIOXIDE 24.8 mmol/L (21.0-32.0); CREATININE - SERUM 5.5 mg/dL (0.6-1.3); POTASSIUM - SERUM 4.6 mmol/L (3.5-5.1); PROTEIN - SERUM 7.9 g/dL (6.4-8.2)
[2017-03-29 04:00] VITALS: BP 135/60
[2017-03-29 09:10] VITALS: BP 111/56
[2017-03-29] MEDS ORDERED: HYDROCODON-ACE1 EAC7 PO (09:55)
== END 2017-03-29 11:08 | disposition home or self-care (01) ==
LOC: D.ER 18:03 → OBSVTIME 21:27 → D.M2 21:27
PROVIDERS: Family Medicine
DX: T82.838A Hemorrhage due to vascular prosthetic devices, implants and grafts, initial encounter (principal); Y83.9 Surgical procedure, unspecified as the cause of abnormal reaction of the patient, or of later complication, without mention of misadventure at the time of the procedure; L03.114 Cellulitis of left upper limb; E11.22 Type 2 diabetes mellitus with diabetic chronic kidney disease; I12.0 Hypertensive chronic kidney disease with stage 5 chronic kidney disease or end stage renal disease; N18.6 End stage renal disease; Z99.2 Dependence on renal dialysis; E11.21 Type 2 diabetes mellitus with diabetic nephropathy; E11.40 Type 2 diabetes mellitus with diabetic neuropathy, unspecified; D63.1 Anemia in chronic kidney disease; E03.9 Hypothyroidism, unspecified

== ENCOUNTER 2017-04-01 10:51 | Emergency (ER) | payer MEDICARE ==
[2017-03-28 09:22] VITALS: BMI 28.8
[~2017-04-01 10:51] MED LIST changes: +DURAGESIC1 PATCH .7 TRANSDERM; +ZOFRAN ODT4 MG/UDTAB PO
[2017-04-01 11:39] LABS: APPEARANCE CLOUDY (CLEAR); BILIRUBIN NEGATIVE (NEGATIVE); COLOR DK YELLOW (YELLOW); GLUCOSE NEGATIVE (NEGATIVE); KETONE NEGATIVE (NEGATIVE); NITRITE NEGATIVE (NEGATIVE); PROTEIN 2+ mg/dL (NEGATIVE); UROBILINOGEN NORMAL (NORMAL)
[2017-04-01 11:41] LABS: BACTERIA MANY /hpf (NONE SEEN); EPITHELIAL CELLS 0-5 /hpf (0-5)
[2017-04-01 11:43] LABS: BASOPHILS 0.8 % (0-2); HEMATOCRIT 37.3 % (42.0-54.0); HEMOGLOBIN 12.1 g/dL (13.5-17.5); IMMATURE GRANULOCYTES 0.3 % (0-5); LYMPHOCYTES 29.5 % (15-50); MCH 27.4 pg (26.0-34.0); MCHC 32.4 g/dL (31.0-37.0); MCV 84.6 fL (80.0-100.0); MEAN PLATELET VOLUME 9.2 fL (7.4-10.4); MONOCYTES 9.4 % (2-11); PLATELET COUNT 156 10x3/uL (130-400); RBC 4.41 10x6/uL (4.20-6.10); RDW 15.2 % (11.5-14.5); WBC 6.3 10x3/uL (4.8-10.8)
[2017-04-01 11:53] LABS: APTT 26.4 SECONDS (22.8-39.4); INR 0.97 (0.85-1.17); PROTIME 12.5 SECONDS (11.6-15.0)
== END 2017-04-01 15:00 | disposition home or self-care (01) ==
LOC: D.ER 10:51
PROVIDERS: Family Medicine
DX: N39.0 Urinary tract infection, site not specified (principal); I12.9 Hypertensive chronic kidney disease with stage 1 through stage 4 chronic kidney disease, or unspecified chronic kidney disease; N18.9 Chronic kidney disease, unspecified

== ENCOUNTER 2018-07-10 07:22 | Outpatient (CLI) | payer MEDICARE ==
[~2018-07-10] VITALS: Ht 172.7 cm; Wt 79.5 kg
--- NOTE | ~2018-07-10 | HEMODYNAMI ---
PATIENT:ARI SOTO MEDICAL RECORD: [id number] : 50 [id number] ADMISSION DATE: 07/10/18 Generatedon:07/10/201815:01 Patient name: ARI SOTO Patient #: [id number] SSN: : 1950 Date of study: 07/10/2018 Page: Of Hemodynamic Procedure Report Patient Data Patient Demographics Procedure consent was obtained First Name: ARI Gender: Male Last Name: CHARLES : 1950 Patient #: [id number] Age: 67 year(s) Race: Other Additional ID: [id number] Contact details Address: [address] [place] [address] rd State: [place] City: [facility] Zip code: [address] Admission Admission Data Admission Date: 07/10/2018 Admission Time: 7:22 Procedure Procedure Types Cath Procedure Peripheral Cath Diagnostic Procedure Venography Extremity Left Upper Ext. Venagram Procedure Description Procedure Date Procedure Date: 07/10/2018 Procedure Start Time: 13:04 Procedure Staff Name Function Luisito Simon RT Monitor Pérez Benjamin MD Performing Physician Nimo Bernal RN Nurse FARSHAD WASSERMAN RT Scrub Procedure Data Cath Procedure Fluoroscopy Diagnostic fluoroscopy Total fluoroscopy Time: 10 time: 10 min min Diagnostic fluoroscopy Total fluoroscopy dose: 368 dose: 368 mGy mGy Contrast Material Contrast Material Type Amount (ml) Isovue 300 0 Diagnostic catheters Device Type Used For End Catheter Placement [facility] Pigtail VESSEL SIZING 5Fr 65CM catheter ([id number]) Procedure Medications Medication Administration Route Dosage Heparin Flush Bag added to field 2 bags (1000units/500ml NS) Lidocaine 1% added to field Versed I.V. 1 mg Fentanyl I.V. 50 mcg Fentanyl I.V. 25 mcg Versed I.V. 0.5 mg Hemodynamics Rest Heart Rate: 57 (bpm) Snapshots Pre Cath Intra NCS Post Cath Vital Signs Time Heart Resp SPO2 etCO2 NIBP (mmHg) Rhythm Pain Sedation Rate (ipm) (%) (mmHg) Status Level (bpm) 12:44:26 57 13 100 30.7 148/77(136) NSR 0 (11) 10(A) , No pain 12:48:49 56 13 100 31.5 151/74(134) NSR 0 (11) 10(A) , No pain 12:53:13 56 11 100 32.2 149/73(137) NSR 0 (11) 10(A) , No pain 12:58:12 55 16 100 23.9 145/78(132) NSR 0 (11) 10(A) , No pain 13:02:32 56 12 100 30 151/74(137) NSR 0 (11) 10(A) , No pain 13:06:56 55 25 100 30 146/71(132) NSR 0 (11) 8(A) , No pain 13:11:16 54 13 100 30 152/76(133) NSR 0 (11) 8(A) , No pain 13:16:15 54 13 100 30.8 Measuring NSR 0 (11) 8(A) , No pain 13:16:20 54 13 100 30.7 151/77(133) NSR 0 (11) 8(A) , No pain 13:20:42 54 13 100 30.7 151/76(139) NSR 0 (11) 8(A) , No pain 13:25:04 54 16 100 33 151/76(140) NSR 0 (11) 8(A) , No pain 13:29:26 53 15 100 32.2 139/74(122) NSR 0 (11) 8(A) , No pain 13:33:44 52 18 100 34.5 142/75(133) NSR 0 (11) 8(A) , No pain 13:38:43 54 20 100 33.7 Measuring NSR 0 (11) 8(A) , No pain 13:38:51 54 17 100 30.7 159/82(140) NSR 0 (11) 8(A) , No pain 13:43:18 54 14 100 30.7 153/72(138) NSR 0 (11) 8(A) , No pain 13:47:40 54 8 100 29.2 153/76(141) NSR 0 (11) 8(A) , No pain 13:52:39 53 10 100 21 Measuring NSR 0 (11) 8(A) , No pain 13:52:47 53 12 99 21 157/76(141) NSR 0 (11) 8(A) , No pain 13:57:11 52 21 100 31.5 146/77(134) NSR 0 (11) 8(A) , No pain 14:02:10 52 19 32.2 Measuring NSR 0 (11) 8(A) , No pain 14:02:22 52 18 96 32.9 148/70(137) NSR 0 (11) 8(A) , No pain 14:07:21 54 12 33.7 Measuring NSR 0 (11) 8(A) , No pain 14:07:38 54 13 32.9 154/72(136) NSR 0 (11) 8(A) , No pain 14:12:37 54 15 100 32.9 Measuring NSR 0 (11) 8(A) , No pain 14:12:51 54 11 100 32.9 151/72(132) NSR 0 (11) 8(A) , No pain 14:17:50 53 14 23.2 Measuring NSR 0 (11) 8(A) , No pain 14:18:00 53 12 30.7 146/76(134) NSR 0 (11) 8(A) , No pain 14:23:00 54 13 26.2 Measuring NSR 0 (11) 8(A) , No pain 14:23:10 54 13 26.9 144/77(134) NSR 0 (11) 8(A) , No pain 14:27:28 52 15 28.5 154/79(138) NSR 0 (11) 8(A) , No pain 14:32:27 51 14 20.9 Measuring NSR 0 (11) 8(A) , No pain 14:32:47 51 15 22.4 178/85(151) NSR 0 (11) 8(A) , No pain 14:37:46 53 12 30 Measuring NSR 0 (11) 8(A) , No pain 14:38:03 53 13 28.4 185/86(149) NSR 0 (11) 8(A) , No pain 14:42:35 54 14 29.2 180/88(153) NSR 0 (11) 8(A) , No pain 14:46:35 54 13 31.4 No Cuff NSR 0 (11) 8(A) , No pain 14:50:34 54 13 24 No Cuff NSR 0 (11) 8(A) , No pain 14:54:34 0.7 No Cuff NSR 0 (11) 8(A) , No pain 14:58:34 0 No Cuff NSR 0 (11) 8(A) , No pain Medications Time Medication Route Dose Verified Delivered Reason Notes Effec tiveness by by 12:50:25 Heparin Flush added 2 Pérez Ortez used for Bag to bags Benjamin Benjamin procedure (1000units/500ml field MD [place] NS) 12:50:42 Lidocaine 1% added Pérez Ortez used for to Benjamin Benjamin procedure field MD [place] 13:06:13 Versed I.V. 1 mg Pérez Suero for Benjamin Bernal RN sedation 13:06:24 Fentanyl I.V. 50 Pérez Suero for mcg Benjamin Bernal RN sedation 13:55:56 Fentanyl I.V. 25 Pérez Suero for mcg Benjamin Bernal RN sedation 13:56:05 Versed I.V. 0.5 Pérez Suero for mg Benjamin Bernal RN sedation Procedure Log Time Note 12:33:35 Luisito Simon RT (R) (CV) sent for patient. Start room use. 12:33:43 Time tracking: Regular hours (M-F 7:00 - 5:00) 12:33:48 Plan of Care:Hemodynamics will remain stable., Cardiac rhythm will remain stable., Comfort level will be maintained., Respiratory function will remain adequate., Patient/ family verbilizes understanding of procedure., Procedure tolerated without complication., Recovers from procedure without complications.. 12:34:04 Patient received from Outpatients to IR Alert and oriented. Tansferred to table in Supine position. 12:34:07 Correct patient and procedure confirmed by team. 12:34:09 Signed procedure consent form obtained from patient. 12:34:10 ECG and BP/O2 sat monitors applied to patient. 12:34:12 - 12:34:12 Full Disclosure recording started 12:34:15 H&P Date Dictated: 07/10/2018 H&P Addendum completed by physician on day of procedure. (MUST COMPLETE FOR ALL OUTPATIENTS). 12:34:16 Pre-procedure instructions explained to patient. 12:34:16 Pre-op teaching completed and patient verbalized understanding. 12:34:19 Family unavailable. 12:34:20 Patient NPO since Midnight. 12:34:24 Is the patient allergic to Iodine/contrast media? Yes. 12:34:25 Was the patient premedicated? Yes 12:34:28 Is patient on blood thinner?No 12:34:36 Use device set IR Diagnostic 12:34:38 Bag Decanter (2002S) opened to sterile field. 12:34:39 Sterile Angiographic Pack opened to sterile field. 12:34:39 Tegaderm 4 x 4 (1626W) opened to sterile field. 12:35:59 Patient diabetic? Yes. 12:36:07 - 12:36:08 ----Pre-sedation anethsthesia assessment.---- 12:36:11 Previous problem with sedation/anesthesia? No ? 12:36:13 Snore? Yes 12:36:14 Sleep apnea? No 12:36:15 Deviated septum? No 12:36:16 Opens mouth fully? Yes 12:36:17 Sticks out tongue? Yes 12:36:20 Airway obstruction? No ? 12:36:22 Dentures? No ? 12:36:25 Sharps counted by scrub and verified by R.N. 12:36:25 Alarms reviewed by Louisa N. 12:36:29 Left Arm area was prepped with chlora-prep and draped in sterile fashio n 12:36:35 Patient pain scale 0/10 no pain. 12:36:46 IV patent on arrival in right hand with 0.9% NaCl at [facility]. 12:43:07 Vital chart was started 12:43:08 Baseline sample Acquired. 12:50:25 Heparin Flush Bag (1000units/500ml NS) 2 bags added to field was administered by Pérez Benjamin MD; used for procedure; 12:50:42 Lidocaine 1% added to field was administered by Pérez Benjamin MD; use d for procedure; 13:03:05 Physician arrived 13:03:06 --------ALL STOP TIME OUT------ 13:03:07 Final Timeout: patient, procedure, and site verified with staff and physician. All members of the team are in agreement. 13:03:09 Left Arm site verified by team. 13:03:15 Fire Safety Assessment: A--An alcohol-based skin anteseptic being used preoperatively., C--Open oxygen or nitrous oxide is being used. 13:03:19 Sedation plan: IV Moderate Sedation Medication:Versed, Fentanyl 13:03:29 Procedure started. 13:04:07 Local anesthetic to left arm with Lidocaine 1% by Pérez Benjamin MD.INITIAL ACCESS ONLY 13:04:14 DILATOR, VESSEL 4/20 opened to sterile field. 13:04:14 DOC .035 wire (U37766) opened to sterile field. 13:06:13 Versed 1 mg I.V. was administered by Nimo Bernal RN; for sedation; 13:06:24 Fentanyl 50 mcg I.V. was administered by Nimo Bernal RN; for sedation; 13:08:59 DILATOR, VESSEL 4/20 opened to sterile field. 13:15:[address] [facility] Pigtail VESSEL SIZING 5Fr 65CM catheter ([id number]) was advanced over the wire and used for . 13:15:09 SHEATH 6FR Gorin (WQD945) opened to sterile field. 13:18:[address]-Way Male Rotating (N15509) opened to sterile field. 13:25:46 FELIX 260 wire (R28592) opened to sterile field. 13:26:40 ROADRUNNER .035 260 glide wire (W89711) opened to sterile field. 13:31:35 Inflate balloon Inflation number: 1 A Evercross 8 x 4 x 135 Balloon ([id number]) was prepped and advanced across the Undefined1 , then inflated 13:40:53 Inflate balloon Inflation number: 2 A Evercross 8 x 4 x 135 Balloon ([id number]) was prepped and advanced across the Undefined1 , then inflated 13:46:39 AMPLATZ Super stiff Straight 260cm wire ([id number]) opened to sterile field. 13:46:49 SHEATH 7FR Destination (RSR04) opened to sterile field. 13:55:45 Protege GPS 14 x 40 X 120 Stent ([id number]) was deployed across Undefined1 . 13:55:56 Fentanyl 25 mcg I.V. was administered by Nimo Bernal RN; for sedation; 13:56:05 Versed 0.5 mg I.V. was administered by Nimo Bernal RN; for sedation; 13:58:45 Inflate balloon Inflation number: 3 A Evercross 12 x 40 x 135 ([id number]) was prepped and advanced across the Undefined1 , then inflated 14:00:34 Protege GPS 12 x 40 X 120 Stent ([id number]) was deployed across Undefined1 . 14:09:32 Inflate balloon Inflation number: 4 A Evercross 10 x 40 x 135 Balloon ([id number]) was prepped and advanced across the Undefined1 , then inflated 14:46:36 Procedure ended.(Physican Out) 14:50:23 Fluoroscopy time 10.00 minutes. 14:50:29 Flurop Dose total: 368 14:50:29 Fluoroscopy dose: 368 mGy 14:50:38 Contrast amount:Isovue 300 0ml. 14:50:40 Sharps counted by scrub and verified by R.N. 14:50:41 Insertion/operative site no bleeding no hematoma. 14:50:57 Post-op/insertion site Left Fistula dressed using a 4 x 4 and Tegaderm. 14:51:05 Post left arm:stable 14:51:09 Procedure and supply charges have been captured, reviewed, submitted an d are correct. 15:01:07 Post procedure instruction explained to patient.Patient verbalizes understanding. 15:01:11 Report given to Outpatients. 15:01:16 Patient transfered to Outpatients with Stretcher. 15:01:46 Vital chart was stopped Intervention Summary Intervention Notes Time ActionType Lesion and Equipment Used Action# Pressure Duration Attributes 13:31:35 Inflate Undefined1 Evercross 8 x 4 x 1 7 00:42 balloon 135 Balloon ([id number]) 13:40:53 Inflate Undefined1 Evercross 8 x 4 x 2 7 00:04 balloon 135 Balloon ([id number]) 13:55:45 Deploy self Undefined1 Protege GPS 14 x 1 expanding 40 X 120 Stent stent ([id number]) 13:58:45 Inflate Undefined1 Evercross 12 x 40 3 0 00:02 balloon x 135 ([id number]) 14:00:34 Deploy self Undefined1 Protege GPS 12 x 1 expanding 40 X 120 Stent stent ([id number]) 14:09:32 Inflate Undefined1 Evercross 10 x 40 4 0 00:01 balloon x 135 Balloon ([id number]) Device Usage Item Name Manufacture Quantity Catalog Number [employer] [facility] ren Minimal Lot# / Charge Number Stock Stock Serial# Code Bag Decanter Microtek 1 [id number] 00867 986 806 5 () Medical Inc. Sterile Cardinal 1 [id number] 660755 998 239 5 Angiographic Pack Health Tegaderm 4 x 4 3M 1 1626W [id number] 414614 992 160 5 (1626W) DILATOR, VESSEL [employer] Medical 2 H98357 110002 30475 999 980 5 [id number] 05/26 [id number] DOC .035 wire [employer] 1 R28231 941647 999 478 5 ([id number]) Merit UHF Pigtail Merit 1 [id number] 880012 999 930 5 VESSEL SIZING 5Fr Medical 65CM catheter ([id number]) SHEATH 6FR Terumo 1 RSW381 992143 500375 995 715 40 Gorin (QNI949) STOPCOCK 1-Way [employer] 1 Z81179 531696 23736 999 970 5 [id number] Male Rotating (U77001) FELIX 260 wire [employer] 1 D56838 729726 77208 999 577 5 (Q49770) ROADRUNNER .035 [employer] 1 R93495 377249 209990 999 808 5 [id number] 260 glide wire (F32002) Evercross 8 x 4 x Medtronic 2 [id number] 759544 058263 999 990 5 [id number] 135 Balloon [id number] ([id number]) AMPLATZ Super Snow 1 [id number] 144321 82548 999 965 5 [id number] stiff Straight Scientific 260cm wire ([id number]) SHEATH 7FR Terumo 1 RSR04 297604 400985 999 929 5 Destination (RSR04) Protege GPS 14 x Medtronic 1 [id number] 957305 536831 999 997 5 [id number] 40 X 120 Stent [id number] ([id number]) Evercross 12 x 40 Medtronic 1 [id number] 597935 915147 999 989 5 x 135 ([id number]) Evercross 10 x 40 Medtronic 1 [id number] 972176 279916 999 977 5 x 135 Balloon ([id number]) Protege GPS 12 x Medtronic 1 YSUB-21-10-40-12 188931 701417 999 997 5 40 X 120 Stent 0 ([id number]) Signature Audit [place] Time Signature Unsigned Intra-Procedure 07/10/2018 Luisito 3:01:41 PM [place] RT (R) (CV) Signatures Monitor : Luisito Signature : Aurora RT Date : Time : [facility] [address] [place] [address]
[2018-07-10 08:00] LABS: APTT 33.8 SECONDS (22.8-39.4); INR 1.47 (0.85-1.17); PROTIME 17.2 SECONDS (11.6-15.0)
[2018-07-10 08:10] LABS: BASOPHILS 0.6 % (0-2); EOSINOPHILS 0 % (0-7); HEMATOCRIT 40.1 % (42.0-54.0); HEMOGLOBIN 13.1 g/dL (13.5-17.5); IMMATURE GRANULOCYTES 0.3 % (0-5); LYMPHOCYTES 27.4 % (15-50); MCH 28.5 pg (26.0-34.0); MCHC 32.7 g/dL (31.0-37.0); MCV 87.4 fL (80.0-100.0); MEAN PLATELET VOLUME 10.1 fL (7.4-10.4); MONOCYTES 0.9 % (2-11); NEUTROPHILS 70.8 % (40-80); PLATELET COUNT 155 10x3/uL (130-400); RBC 4.59 10x6/uL (4.20-6.10); RDW 15.1 % (11.5-14.5); WBC 3.2 10x3/uL (4.8-10.8)
[2018-07-10 08:12] LABS: CALCIUM 8.5 mg/dL (8.5-10.1); CARBON DIOXIDE 23.9 mmol/L (21.0-32.0); CREATININE - SERUM 3.4 mg/dL (0.6-1.3); POTASSIUM - SERUM 4.9 mmol/L (3.5-5.1)
[2018-07-10 08:48] VITALS: Ht 172.7 cm; Wt 79.5 kg
--- NOTE | 2018-07-10 09:33 | NUR ---
0830 DARIN AYALA APN PAGED BLOOD SUGAR GIVEN ORDERS RECEIVED 914 10 UNITS REGULAR INSULIN GIVEN SUGCUTANEOUS LEFT ABDOMEN
--- NOTE | 2018-07-10 15:57 | NUR ---
1515 SEE POST PROCEDURE CHECKLIST FOR VITAL SIGN TRENDS
== END 2018-07-10 17:20 | disposition home or self-care (01) ==
LOC: D.SP 07:22 → D.RAD 07:22 → D.SP 17:20
PROVIDERS: Specialist; ATTEND Internal Medicine Nephrology
DX: T82.858A Stenosis of other vascular prosthetic devices, implants and grafts, initial encounter (principal); I87.1 Compression of vein; N18.6 End stage renal disease; Z01.812 Encounter for preprocedural laboratory examination; I11.9 Hypertensive heart disease without heart failure; E11.9 Type 2 diabetes mellitus without complications; E07.9 Disorder of thyroid, unspecified; F17.200 Nicotine dependence, unspecified, uncomplicated

== ENCOUNTER → 2018-12-07 09:18 | Outpatient (CLI) | payer MEDICARE ==
[2018-07-10 08:48] VITALS: BMI 26.6
[2018-12-07 09:40] LABS: PROTIME > 120.0 SECONDS (11.6-15.0)
== END | disposition home or self-care (01) ==
LOC: D.LABREF 09:18
PROVIDERS: ATTEND Internal Medicine Nephrology
DX: Z79.01 Long term (current) use of anticoagulants (principal)

== ENCOUNTER 2019-02-26 20:55 | Emergency (ER) | payer MEDICARE ==
[~2019-02-26] VITALS: Ht 172.7 cm; Wt 75.0 kg
[2019-02-26 20:59] VITALS: Ht 172.7 cm; Wt 75.0 kg
[2019-02-26] MEDS ORDERED: PACERONE200 MG PO (21:04)
[2019-02-26] MEDS ORDERED: ATIVAN0.5 MG PO ×2 (21:05→21:07)
[2019-02-26] MEDS ORDERED: LANTUS SOL100 UNIT/1 SQ (21:09)
[2019-02-26] MEDS ORDERED: CYMBALTA20 MG (21:10)
[2019-02-26] MEDS ORDERED: CYMBALTA20 MG PO (21:11)
[2019-02-26] MEDS ORDERED: DURAGESIC1 PATCH .7 TOPICAL (21:13)
[2019-02-26] MEDS ORDERED: LINZESS145 MCG PO (21:15)
[2019-02-26] MEDS ORDERED: MIDODRINE HCL10 MG PO (21:16)
[2019-02-26] MEDS ORDERED: ULTRAM50 MG PO (22:16)
[2019-02-27 01:01] VITALS: BP 183/66
== END 2019-02-27 00:30 | disposition home or self-care (01) ==
LOC: D.ER 20:55
DX: M77.9 Enthesopathy, unspecified (principal); T84.84XA Pain due to internal orthopedic prosthetic devices, implants and grafts, initial encounter; E11.9 Type 2 diabetes mellitus without complications; Z79.4 Long term (current) use of insulin; Z89.512 Acquired absence of left leg below knee

== ENCOUNTER → 2019-08-01 08:04 | Outpatient (CLI) | payer MEDICARE ==
[2019-02-26 20:59] VITALS: BMI 25.1
[~2019-08-01 08:04] MED LIST changes: +ATIVAN0.5 MG PO; +CYMBALTA20 MG; +CYMBALTA20 MG PO; +DURAGESIC1 PATCH .7 TOPICAL; +LANTUS SOL100 UNIT/1 SQ; +LINZESS145 MCG PO; +MIDODRINE HCL10 MG PO; +PACERONE200 MG PO; +ULTRAM50 MG PO
== END | disposition home or self-care (01) ==
LOC: D.US 08:04
PROVIDERS: ATTEND Internal Medicine Nephrology
DX: R79.89 Other specified abnormal findings of blood chemistry (principal)